=== PATIENT | male | born 1990 | race Caucasian/White ===

== ENCOUNTER 2023-11-14 23:54 | Emergency (ER) | payer MEDICAID ==
[~2023-11-14] VITALS: Ht 172.7 cm; Wt 81.6 kg
[2023-11-15 00:24] VITALS: BP 131/90; PULSE 80; RESP 16; TEMP 98.3; O2SAT 99
[2023-11-15 01:29] VITALS: O2SAT 99
[2023-11-15] MEDS: buprenorphine HCL 2 MG sublingual tab PO ONE (01:59)
[2023-11-15] MEDS ORDERED: BUPR8TAB3 SL (02:42)
[2023-11-15 02:50] VITALS: BP 98/63; PULSE 68; RESP 14; TEMP 98.3; O2SAT 98
== END 2023-11-15 02:50 | disposition home or self-care (01) ==
LOC: MED 23:54
DX: F11.23 Opioid dependence with withdrawal (principal); F41.9 Anxiety disorder, unspecified; F20.9 Schizophrenia, unspecified; F31.9 Bipolar disorder, unspecified
CPT/HCPCS: 99283